=== PATIENT | female | born 1985 | race Caucasian/White ===

== ENCOUNTER 2017-04-06 06:25 | Emergency (ER) | payer MEDICAID, OTHER ==
[~2017-04-06] VITALS: Ht 162.6 cm; Wt 52.2 kg
[2017-04-06] MEDS ORDERED: ACETAMINOPHEN ES 500 MG TABLET ONE (06:37)
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
--- NOTE | 2017-04-06 06:45 | NUR ---
PATIENT TAKEN TO CT.
[2017-04-06] MEDS ORDERED: ACETAMINOPHEN ES 500 MG TABLET PO ONE (07:00)
--- NOTE | 2017-04-06 07:40 | NUR ---
Patient discharged to home in stable condition. Written and verbal after care instructions given. Patient verbalizes understanding of instruction. Patient is ambulatory with steady gait, accompanied by friend. no further complaints.
[2017-04-06 07:42] VITALS: BP 130/74
== END 2017-04-06 07:42 | disposition home or self-care (01) ==
LOC: ER 06:27
DX: S06.0X0A Concussion without loss of consciousness, initial encounter (principal); S42.002A Fracture of unspecified part of left clavicle, initial encounter for closed fracture; V43.52XA Car driver injured in collision with other type car in traffic accident, initial encounter; Y93.89 Activity, other specified; Y92.410 Unspecified street and highway as the place of occurrence of the external cause; Y99.9 Unspecified external cause status
CPT/HCPCS: 29105; 70450; 72125; 73030; 99284; A4606; Z7610